=== PATIENT | male | born 1990 | race Caucasian/White ===

== ENCOUNTER 2016-09-21 15:47 | Emergency (ER) | payer OTHER ==
[2016-09-21 15:54] VITALS: TEMP 98.5; BMI 32.1
--- NOTE | 2016-09-21 18:01 | PDOC ---
History of Present Illness - History of Present Illness Initial Comments: 09/21/16 18:23 The patient is a 26 year old male with no past medical hx who presents to the ED complaining of a right sided headache for 4 days. The patient states the headache started 4 days ago behind his right eye when he woke up in the morning. He reports the night before he was in his normal state of health. He reports the headache has progressively gotten worse, but is still located on the right side. The headache is now a 10/10 and feels as if someone is punching his head. He reports he has never had a headache like this in the past , and his headaches are normally diffuse. He took Tylenol and Advil with no relief. 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 The patient denies a hx of migraines or recent head trauma. He reports vomiting, and intermittent right arm numbness. The patient denies any recent travel, fever, chills blurred vision, neck pain The patient denies any chest pain, SOB Allergies: NKDA Social: Former smoker (quit 3 months ago) Surgical:None PCP: N/A <Graciela iSnclair - Last Filed: 09/21/16 18:50> - General History Source: Patient Exam Limitations: No Limitations <Lisa Hand - Last Filed: 09/22/16 10:45> - General Chief Complaint: Migraine Headache Stated Complaint: HEADACHES, VOMITING BLOOD Time Seen by Provider: 09/21/16 17:34 Past History <Graciela Sinclair - Last Filed: 09/21/16 18:50> - Past Medical History Anemia: No Asthma: No Cancer: No Cardiac Disorders: No CVA: No COPD: No CHF: No Dementia: No Diabetes: No GI Disorders: No Disorders: No HTN: No Hypercholesterolemia: No Liver Disease: No Seizures: No Thyroid Disease: No Other medical history: denies - Surgical History Abdominal Surgery: No Appendectomy: No Cardiac Surgery: No Cholecystectomy: No Lung Surgery: No Neurologic Surgery: No Orthopedic Surgery: No - Psycho/Social/Smoking Cessation Hx Anxiety: No Suicidal Ideation: No Smoking Status: No Smoking History: Never smoked Have you smoked in the past 12 months: Yes Number of Cigarettes Smoked Daily: 0 If you are a former smoker, when did you quit?: 3 mo ago Information on smoking cessation initiated: No Hx Alcohol Use: Yes (occasional) Drug/Substance Use Hx: No Substance Use Type: None <YazanLisa - Last Filed: 09/22/16 10:45> - Past Medical History Allergies/Adverse Reactions: Allergies Allergy/AdvReac Type Severity Reaction Status Date / Time No Known Allergies Allergy Verified 09/21/16 15:52 Home Medications: Ambulatory Orders Cyclobenzaprine HCl [Flexeril -] 10 mg PO TID PRN #12 tablet 07/03/16 Ibuprofen [Motrin -] 600 mg PO QID PRN #30 tablet 07/03/16 Ibuprofen [Motrin -] 600 mg PO TID PRN #30 tablet 07/03/16 Amox-Tr/K Cl [Augmentin 875Mg Tablet] 1 tab PO BID #20 tablet 09/21/16 Ibuprofen 800 mg PO TID #30 tablet 09/21/16 Pseudoephedrine HCl [Sudafed] 30 mg PO Q6H #20 tablet 09/21/16 Review of Systems - Review of Systems Able to Perform ROS?: Yes Comments:: 09/21/16 18:50 GENERAL/CONSTITUTIONAL: No: fever, chills, weakness, loss of appetite. HEAD, EYES, EARS, NOSE AND THROAT: No: change in vision, ear pain, discharge, sore throat, throat swelling. CARDIOVASCULAR: No: chest pain, lightheadedness, palpitations, syncope RESPIRATORY: No: cough, shortness of breath, wheezing, hemoptysis, stridor. GASTROINTESTINAL: No: nausea, vomiting, abdominal cramping, diarrhea, rectal bleeding, constipation. GENITOURINARY: No: dysuria, hematuria, frequency, urgency, flank pain. MUSCULOSKELETAL: No: back pain, neck pain, joint pain, muscle swelling or pain SKIN: No: lesions, pallor, rash or easy bruising. NEUROLOGIC: +Headache, right arm numbness. No: vertigo, weakness ENDOCRINE: No: unexplained weight gain or loss HEMATOLOGIC/LYMPHATIC: No: anemia, easy bleeding, swelling nodes <Graciela Sinclair - Last Filed: 09/21/16 18:50> *Physical Exam - Vital Signs Last Vital Signs Temp Pulse Resp BP Pulse Ox 98.5 F 52 L 18 118/65 100 09/21/16 15:49 09/21/16 15:49 09/21/16 15:49 09/21/16 15:49 09/21/16 15:49 - Physical Exam Comments: 09/21/16 18:51 PE: GENERAL: +Appears uncomfortable. The patient is in no acute distress. HEAD: Normal with no signs of trauma. EYES: +Photophobia. PERRLA, EOMI, sclera anicteric, conjunctiva clear. ENT: Ears normal, nares patent, oropharynx clear without exudates. Moist mucous membranes. NECK: +No tenderness or rigidity. Normal range of motion, supple without lymphadenopathy, JVD, or masses. LUNGS: Breath sounds equal, clear to auscultation bilaterally. No wheezes, and no crackles. HEART:Regular rate and rhythm, normal S1 and S2 without murmur, rub or gallop. ABDOMEN: Soft, nontender, normoactive bowel sounds. No guarding, no rebound. EXTREMITIES: Normal range of motion, no edema. No clubbing or cyanosis. No erythema, or tenderness. NEUROLOGICAL: +Neurologically intact. Cranial nerves II through XII grossly intact. Normal speech. No focal neurological deficits. MUSCULOSKELETAL: Back nontender to palpation, no CVA tenderness SKIN: Warm, Dry, normal turgor, no rashes or lesions noted. <Graciela Sinclair - Last Filed: 09/21/16 18:50> - Vital Signs Last Vital Signs Temp Pulse Resp BP Pulse Ox 98.5 F 52 L 18 118/65 100 09/21/16 15:49 09/21/16 15:49 09/21/16 15:49 09/21/16 15:49 09/21/16 15:49 <Lisa Hand - Last Filed: 09/22/16 10:45> ED Treatment Course - LABORATORY CBC & Chemistry Diagram: 09/21/16 18:24 09/21/16 18:24 <Lisa Hand - Last Filed: 09/22/16 10:45> Medical Decision Making - Medical Decision Making 09/21/16 18:01 A portion of this note was documented by scribe services under my direction. I have reviewed the details of the note, within reason, and agree with the documentation with the following case summary and management plan written by me. Nursing documentation reviewed and incorporated into medical decision making 09/22/16 09:56 This is a 26-year-old male with no significant past medical history who presents emergency department with a complaint of right-sided headache. Patient states he has a history of chronic headaches but typically it is diffusely located throughout his head. Patient states this current headache began 4 days ago. He awoke from sleep with right-sided head pain. He states the headache is located behind his right eye. Initially pain was 4/10 and worsened to 7/10. The following day, his headache went from 5/10 and worsened to an 8/10 Today headache has been consistently 10/10 No focal weakness No slurred speech (+) photophobia No nuchal rigidity Pain increases with reading on his phone 09/22/16 10:15 On examination No pain on palpation of the islam Pupils round and reactive (+) photophobia NEURO: Mental status: The patient is oriented x3. Cranial nerves: Cranial nerves II through XII are intact Motor: The upper extremities are 5 over 5 in all muscle groups. The lower extremities are 5 over 5 in all muscle groups. Sensation: Sensation is intact to light touch throughout. Cerebellar: Sxfhef-[id number]-tcpb is normal in both upper extremities. Heel-knee- thorne is normal in both lower extremities. Reflexes: 2+ and symmetric in the upper and lower extremities. Gait: Normal. Heel and toe walking are normal. Tandem gait is normal. DD includes: Intracranial mass, sinusitis, Migraine, Tension headache Will do labs Will do CT Will give Tylenol IV (not toradol until CT) Will give Reglan IV Will re assess Pt signed out to Dr Calle <Lisa Hand - Last Filed: 09/22/16 10:45> *DC/Admit/Observation/Transfer - Attestations Scribe Attestion: 09/21/16 18:24 Documentation prepared by Graciela Sinclair, acting as medical lab assistant for Lisa Hand MD/. <Graciela Sinclair - Last Filed: 09/21/16 18:50> <Lisa Hand - Last Filed: 09/22/16 10:45> Diagnosis at time of Disposition: Sinusitis Qualifiers: Sinusitis location: sphenoidal Chronicity: acute Recurrence: non-recurrent Qualified Code(s): J01.30 - Acute sphenoidal sinusitis, unspecified - Discharge Dispostion Disposition: HOME Condition at time of disposition: Good - Prescriptions Prescriptions: Amox-Tr/K Cl [Augmentin 875Mg Tablet] 1 tab PO BID #20 tablet Ibuprofen 800 mg PO TID #30 tablet Pseudoephedrine HCl [Sudafed] 30 mg PO Q6H #20 tablet - Referrals Referrals: Blas Melissa MD [Staff Physician] - - Patient Instructions Printed Discharge Instructions: DI for Sinusitis
[2016-09-21] MEDS ORDERED: SODIUM CHLORIDE 1,000 ML IV STA (18:02)
[2016-09-21] MEDS ORDERED: METOCLOPRAMIDE HCL INJECTION 10 MG/2 ML VIAL IVPB ONE (18:03)
[2016-09-21] MEDS ORDERED: ACETAMINOPHEN 1000 MG/100 ML VIAL (NON FORMULARY) IVPB ONE (18:03)
[2016-09-21] MEDS ORDERED: MAGNESIUM SULF 50% (8.12 MEQ/2 ML-1 GM VIAL) IVPB ONE (18:03)
[2016-09-21] MEDS ORDERED: MAGNESIUM SULF 50% (8.12 MEQ/2 ML-1 GM VIAL) ONE (18:29)
[2016-09-21] MEDS ORDERED: METOCLOPRAMIDE HCL INJECTION 10 MG/2 ML VIAL ONE (18:29)
[2016-09-21] MEDS ORDERED: ACETAMINOPHEN INJECTION 100 ML IVPB ONE (18:30)
[2016-09-21 19:09] LABS: BASOPHIL 0.8 % (0-2.0); MCH 28.3 pg (25.7-33.7); MCHC 31.8 g/dl (32.0-35.9); MEAN PLT VOLUME 9.6 fl (7.5-11.1); NEUTROPHILS 58.6 % (42.8-82.8); PLATELET COUNT 179 K/MM3 (134-434); RDW 13.1 % (11.9-15.9)
[2016-09-21 19:31] LABS: ALBUMIN 4.2 g/dl (3.4-5.0); ALK PHOS 77 U/L (45-117); ANION GAP 6 (8-16); BILIRUBIN,TOTAL 0.3 mg/dL (0.2-1.0); CALCIUM 9.2 mg/dL (8.5-10.1); CO2 28 mmol/L (21-32); CREATININE 0.8 mg/dL (0.7-1.3); GLUCOSE,RANDOM 83 mg/dL (74-106); SGOT/AST 15 U/L (15-37); SGPT/ALT 23 U/L (12-78); TOT PROT 7.5 g/dl (6.4-8.2)
[2016-09-21] MEDS ORDERED: KETOROLAC TROMETHAMINE 30 MG/1 ML VIAL IVPUSH ONE (20:56)
[2016-09-21] MEDS ORDERED: AMPICILLIN NA/SULBACTAM NA 3 GM in SODIUM CHLORIDE 100 ML IVPB ONE (20:56)
[2016-09-21] MEDS ORDERED: KETOROLAC TROMETHAMINE 30 MG/1 ML VIAL ONE (21:30)
--- NOTE | 2016-09-21 22:33 | PDOC ---
*Physical Exam - Vital Signs Last Vital Signs Temp Pulse Resp BP Pulse Ox 98.5 F 52 L 18 118/65 100 09/21/16 15:49 09/21/16 15:49 09/21/16 15:49 09/21/16 15:49 09/21/16 15:49 ED Treatment Course - LABORATORY CBC & Chemistry Diagram: 09/21/16 18:24 09/21/16 18:24 - ADDITIONAL ORDERS Additional order review: Laboratory Results 09/21/16 18:24 Sodium 141 Potassium 4.1 Chloride 107 Carbon Dioxide 28 Anion Gap 6 L BUN 15 D Creatinine 0.8 Creat Clearance w eGFR > 60 Random Glucose 83 D Calcium 9.2 Total Bilirubin 0.3 D AST 15 ALT 23 Alkaline Phosphatase 77 Total Protein 7.5 Albumin 4.2 09/21/16 18:24 RBC 5.23 MCV 89.0 MCHC 31.8 L RDW 13.1 MPV 9.6 Neutrophils % 58.6 Lymphocytes % 28.6 Monocytes % 9.0 Eosinophils % 3.0 D Basophils % 0.8 - Medications Given in the ED: ED Medications Discontinued Medications Generic Name Dose Route Start Last Admin Trade Name Mishaq PRN Reason Stop Dose Admin Acetaminophen 1,000 mg 09/21/16 18:03 09/21/16 18:35 Ofirmev Injection - IVPB 09/21/16 18:04 1,000 mg ONCE ONE Administration Ampicillin Sodium/Sulbactam 100 mls @ 200 mls/hr 09/21/16 20:56 09/21/16 21:31 Sodium 3 gm/ Sodium Chloride IVPB 09/21/16 21:25 200 mls/hr ONCE ONE Administration Ketorolac Tromethamine 30 mg 09/21/16 20:56 09/21/16 21:31 Toradol Injection - IVPUSH 09/21/16 20:57 30 mg ONCE ONE Administration Magnesium Sulfate 2 gm 09/21/16 18:03 09/21/16 18:35 Magnesium Sulfate IVPB 09/21/16 18:04 2 gm ONCE ONE Administration Metoclopramide HCl 10 mg 09/21/16 18:03 09/21/16 18:35 Reglan Injection - IVPB 09/21/16 18:04 10 mg ONCE ONE Administration *DC/Admit/Observation/Transfer Diagnosis at time of Disposition: Sinusitis Qualifiers: Sinusitis location: sphenoidal Chronicity: acute Recurrence: non-recurrent Qualified Code(s): J01.30 - Acute sphenoidal sinusitis, unspecified - Discharge Dispostion Disposition: HOME Condition at time of disposition: Stable Admit: No - Referrals Referrals: Blas Melissa MD [Staff Physician] - - Patient Instructions Printed Discharge Instructions: DI for Sinusitis
[2016-09-21 23:22] VITALS: BP 116/66; PULSE 61
== END 2016-09-21 23:20 | disposition home or self-care (01) ==
LOC: JER 15:47
PROC: 3E0337Z Introduction of Electrolytic and Water Balance Substance into Peripheral Vein, Percutaneous Approach (ICD-10-PCS; principal; 2016-09-21)
PROC: 3E03329 Introduction of Other Anti-infective into Peripheral Vein, Percutaneous Approach (ICD-10-PCS; 2016-09-21)
PROC: 3E033GC Introduction of Other Therapeutic Substance into Peripheral Vein, Percutaneous Approach (ICD-10-PCS; 2016-09-21)
PROC: 3E033NZ Introduction of Analgesics, Hypnotics, Sedatives into Peripheral Vein, Percutaneous Approach (ICD-10-PCS; 2016-09-21)
PROC: 3E0333Z Introduction of Anti-inflammatory into Peripheral Vein, Percutaneous Approach (ICD-10-PCS; 2016-09-21)
DX: J01.30 Acute sphenoidal sinusitis, unspecified (principal)
CPT/HCPCS: 36415; 70450-TC; 80053; 85025; 99283-25

== ENCOUNTER 2022-11-14 12:59 | Inpatient (IN) | payer OTHER ==
[2022-11-14] MEDS ORDERED: SODIUM CHLORIDE 1,000 ML IV STA (14:38)
[2022-11-14] MEDS ORDERED: CLINDAMYCIN 600MG PREMIX IVPB 600 MG/50 ML BAG IVPB ONE ×2 (14:38→15:09)
[2022-11-14 15:34] LABS: BASO % 0.7 % (0-2.0); HEMATOCRIT 43.9 % (35.4-49); HEMOGLOBIN 14.6 GM/dL (11.7-16.9); LYMPH % 18.1 % (8-40); MCH 29.4 pg (25.7-33.7); MCHC 33.1 g/dl (32.0-35.9); MEAN CELL VOLUME 88.6 fl (80-96); MEAN PLT VOLUME 9.4 fl (7.5-11.1); MONO % 12.2 % (3.8-10.2); PLATELET COUNT 202 10^3/uL (134-434); RBC 4.96 M/mm3 (4.00-5.60); RDW 13.3 % (11.9-15.9); WHITE BLOOD COUNT 12.1 K/mm3 (4.0-10.0)
[2022-11-14 15:41] LABS: INR 1.06 (0.83-1.09); PROTHROMBIN TIME (PATIENT) 12.3 SEC (9.7-13.0)
[2022-11-14 15:44] LABS: ACTIVATED PTT 32.1 SECONDS (25.2-36.5)
[2022-11-14 15:56] LABS: CALCIUM 9.3 mg/dL (8.5-10.1)
[2022-11-14 15:57] LABS: BLOOD UREA NITROGEN 8.3 mg/dL (7-18)
[2022-11-14 16:00] LABS: CREATININE 0.8 mg/dL (0.55-1.3)
[2022-11-14 16:01] LABS: BILIRUBIN,TOTAL 0.4 mg/dL (0.2-1); TOT PROT 7.6 g/dl (6.4-8.2)
[2022-11-14] MEDS ORDERED: ACETAMINOPHEN 1000 MG/100 ML BAG IVPB ONE (16:17)
[2022-11-14] MEDS ORDERED: ACETAMINOPHEN INJECTION 100 ML IVPB ONE (17:02)
[2022-11-14 18:38] VITALS: BMI 34.8
[2022-11-14] MEDS: AMPICILLIN NA/SULBACTAM NA 3 GM in SODIUM CHLORIDE 100 ML IVPB SCH (19:02)
[2022-11-14] MEDS: DOXYCYCLINE INJECTION 100 MG in DEXTROSE 5%-WATER 100 ML IVPB SCH (21:34)
[2022-11-14] MEDS ORDERED: CIPROFLOXACIN 400 MG/D5W 400 MG/200 ML IVPB IVPB SCH (22:00)
[2022-11-14] MEDS: IBUPROFEN 400 MG TABLET (FP) PO PRN (23:02)
[2022-11-14] MEDS ORDERED: ACETAMINOPHEN 1000 MG/100 ML BAG IVPB PRN (23:15)
[2022-11-15] MEDS: AMPICILLIN NA/SULBACTAM NA 3 GM in SODIUM CHLORIDE 100 ML IVPB SCH ×3 (01:54→19:06)
[2022-11-15 10:07] LABS: BASO % 0.4 % (0-2.0); EOS % 1.8 % (0-4.5); HEMATOCRIT 44.4 % (35.4-49); HEMOGLOBIN 14.6 GM/dL (11.7-16.9); LYMPH % 17.7 % (8-40); MCH 29.4 pg (25.7-33.7); MCHC 32.8 g/dl (32.0-35.9); MEAN CELL VOLUME 89.5 fl (80-96); MEAN PLT VOLUME 9.8 fl (7.5-11.1); MONO % 11.5 % (3.8-10.2); NEUT % 68.6 % (42.8-82.8); PLATELET COUNT 191 10^3/uL (134-434); RBC 4.96 M/mm3 (4.00-5.60); RDW 13.4 % (11.9-15.9); WHITE BLOOD COUNT 13.3 K/mm3 (4.0-10.0)
[2022-11-15] MEDS: ENOXAPARIN NA (PORCINE) 40 MG/0.4 ML DISP.SYRIN SQ SCH (10:12)
[2022-11-15] MEDS: DOXYCYCLINE INJECTION 100 MG in DEXTROSE 5%-WATER 100 ML IVPB SCH (10:13)
[2022-11-15 10:40] LABS: ALBUMIN 3.5 g/dl (3.4-5.0); BLOOD UREA NITROGEN 9.1 mg/dL (7-18); CALCIUM 8.9 mg/dL (8.5-10.1)
[2022-11-15 10:43] LABS: CREATININE 0.8 mg/dL (0.55-1.3)
[2022-11-15 10:45] LABS: BILIRUBIN,TOTAL 0.8 mg/dL (0.2-1); TOT PROT 6.8 g/dl (6.4-8.2)
[2022-11-15] MEDS: IBUPROFEN 400 MG TABLET (FP) PO PRN (15:24)
[2022-11-16] MEDS: AMPICILLIN NA/SULBACTAM NA 3 GM in SODIUM CHLORIDE 100 ML IVPB SCH ×3 (02:30→18:39)
[2022-11-16] MEDS: IBUPROFEN 400 MG TABLET (FP) PO PRN ×3 (04:36→23:07)
[2022-11-16] MEDS ORDERED: VANCOMYCIN 2,000 MG in DEXTROSE 5%-WATER - 500 ML IVPB SCH (08:15)
[2022-11-16 08:45] LABS: HEMATOCRIT 42.4 % (35.4-49); HEMOGLOBIN 13.9 GM/dL (11.7-16.9); MCH 29.5 pg (25.7-33.7); MCHC 32.8 g/dl (32.0-35.9); MEAN PLT VOLUME 10.1 fl (7.5-11.1); PLATELET COUNT 173 10^3/uL (134-434); RBC 4.71 M/mm3 (4.00-5.60); RDW 13.1 % (11.9-15.9); WHITE BLOOD COUNT 10.9 K/mm3 (4.0-10.0)
[2022-11-16 09:02] LABS: ALBUMIN 3.2 g/dl (3.4-5.0); CALCIUM 8.9 mg/dL (8.5-10.1); MAGNESIUM 2.2 mg/dL (1.8-2.4)
[2022-11-16 09:03] LABS: BLOOD UREA NITROGEN 12.1 mg/dL (7-18)
[2022-11-16 09:05] LABS: CREATININE 0.7 mg/dL (0.55-1.3); PHOSPHOROUS 3.6 mg/dL (2.5-4.9)
[2022-11-16 09:07] LABS: BILIRUBIN,TOTAL 0.4 mg/dL (0.2-1); TOT PROT 6.4 g/dl (6.4-8.2)
[2022-11-16] MEDS ORDERED: VANCOMYCIN/WATER 2 GRAMS 2,000 MG/400 ML PIGGYBACK IVPB SCH (10:00)
[2022-11-16] MEDS ORDERED: DOXYCYCLINE INJECTION 100 MG in DEXTROSE 5%-WATER 100 ML IVPB SCH (10:00)
[2022-11-16] MEDS: ENOXAPARIN NA (PORCINE) 40 MG/0.4 ML DISP.SYRIN SQ SCH (10:05)
[2022-11-17] MEDS: AMPICILLIN NA/SULBACTAM NA 3 GM in SODIUM CHLORIDE 100 ML IVPB SCH ×3 (02:44→17:53)
[2022-11-17 08:13] LABS: BASO % 0.8 % (0-2.0); EOS % 3.7 % (0-4.5); HEMATOCRIT 43.2 % (35.4-49); HEMOGLOBIN 14.2 GM/dL (11.7-16.9); LYMPH % 30.7 % (8-40); MCH 29.3 pg (25.7-33.7); MCHC 32.8 g/dl (32.0-35.9); MEAN CELL VOLUME 89.4 fl (80-96); MEAN PLT VOLUME 9.7 fl (7.5-11.1); MONO % 10.4 % (3.8-10.2); NEUT % 54.4 % (42.8-82.8); PLATELET COUNT 170 10^3/uL (134-434); RBC 4.83 M/mm3 (4.00-5.60); RDW 13.1 % (11.9-15.9); WHITE BLOOD COUNT 7.6 K/mm3 (4.0-10.0)
[2022-11-17 08:40] LABS: BLOOD UREA NITROGEN 12.9 mg/dL (7-18); CALCIUM 8.8 mg/dL (8.5-10.1); MAGNESIUM 2.2 mg/dL (1.8-2.4)
[2022-11-17 08:43] LABS: CREATININE 0.7 mg/dL (0.55-1.3); PHOSPHOROUS 3.1 mg/dL (2.5-4.9)
[2022-11-17 08:44] LABS: BILIRUBIN,TOTAL 0.4 mg/dL (0.2-1)
[2022-11-17] MEDS: ENOXAPARIN NA (PORCINE) 40 MG/0.4 ML DISP.SYRIN SQ SCH (10:48)
[2022-11-17] MEDS: IBUPROFEN 400 MG TABLET (FP) PO PRN ×2 (15:29→22:25)
[2022-11-18] MEDS: AMPICILLIN NA/SULBACTAM NA 3 GM in SODIUM CHLORIDE 100 ML IVPB SCH ×3 (02:42→17:33)
[2022-11-18] MEDS: ENOXAPARIN NA (PORCINE) 40 MG/0.4 ML DISP.SYRIN SQ SCH (09:05)
[2022-11-18 10:13] LABS: HEMOGLOBIN 14.5 GM/dL (11.7-16.9); MCH 28.5 pg (25.7-33.7); MCHC 32.2 g/dl (32.0-35.9); MEAN CELL VOLUME 88.7 fl (80-96); MEAN PLT VOLUME 9.7 fl (7.5-11.1); PLATELET COUNT 180 10^3/uL (134-434); RBC 5.08 M/mm3 (4.00-5.60); RDW 13.4 % (11.9-15.9); WHITE BLOOD COUNT 5.4 K/mm3 (4.0-10.0)
[2022-11-18 10:52] LABS: CALCIUM 8.9 mg/dL (8.5-10.1)
[2022-11-18 10:53] LABS: ALBUMIN 3.3 g/dl (3.4-5.0); BLOOD UREA NITROGEN 15.2 mg/dL (7-18)
[2022-11-18 10:56] LABS: CREATININE 0.9 mg/dL (0.55-1.3)
[2022-11-18 10:58] LABS: BILIRUBIN,TOTAL 0.4 mg/dL (0.2-1); TOT PROT 6.7 g/dl (6.4-8.2)
[2022-11-19] MEDS: AMPICILLIN NA/SULBACTAM NA 3 GM in SODIUM CHLORIDE 100 ML IVPB SCH ×3 (01:44→17:01)
[2022-11-19] MEDS: IBUPROFEN 400 MG TABLET (FP) PO PRN (05:50)
[2022-11-19] MEDS: ENOXAPARIN NA (PORCINE) 40 MG/0.4 ML DISP.SYRIN SQ SCH (09:23)
[2022-11-19 10:22] LABS: BASO % 0.7 % (0-2.0); EOS % 2.9 % (0-4.5); HEMATOCRIT 46.4 % (35.4-49); HEMOGLOBIN 15.2 GM/dL (11.7-16.9); LYMPH % 32.4 % (8-40); MCH 29.6 pg (25.7-33.7); MCHC 32.8 g/dl (32.0-35.9); MEAN CELL VOLUME 90.3 fl (80-96); MEAN PLT VOLUME 9.8 fl (7.5-11.1); MONO % 7.4 % (3.8-10.2); NEUT % 56.6 % (42.8-82.8); PLATELET COUNT 213 10^3/uL (134-434); RBC 5.13 M/mm3 (4.00-5.60); RDW 12.9 % (11.9-15.9); WHITE BLOOD COUNT 7.2 K/mm3 (4.0-10.0)
[2022-11-19 10:41] LABS: CALCIUM 9.3 mg/dL (8.5-10.1)
[2022-11-19 10:42] LABS: BLOOD UREA NITROGEN 9.7 mg/dL (7-18)
[2022-11-19 10:45] LABS: CREATININE 0.9 mg/dL (0.55-1.3)
[2022-11-20] MEDS: AMPICILLIN NA/SULBACTAM NA 3 GM in SODIUM CHLORIDE 100 ML IVPB SCH ×2 (01:06→09:18)
[2022-11-20] MEDS: IBUPROFEN 400 MG TABLET (FP) PO PRN (09:18)
[2022-11-20] MEDS: ENOXAPARIN NA (PORCINE) 40 MG/0.4 ML DISP.SYRIN SQ SCH (09:18)
[2022-11-20 09:55] LABS: HEMATOCRIT 47.2 % (35.4-49); HEMOGLOBIN 15.4 GM/dL (11.7-16.9); MCH 28.6 pg (25.7-33.7); MCHC 32.6 g/dl (32.0-35.9); MEAN CELL VOLUME 87.8 fl (80-96); MEAN PLT VOLUME 9.2 fl (7.5-11.1); PLATELET COUNT 224 10^3/uL (134-434); RBC 5.38 M/mm3 (4.00-5.60); RDW 13.3 % (11.9-15.9); WHITE BLOOD COUNT 6.8 K/mm3 (4.0-10.0)
[2022-11-20 10:45] LABS: BLOOD UREA NITROGEN 11.8 mg/dL (7-18); CALCIUM 9.3 mg/dL (8.5-10.1)
[2022-11-20 10:48] LABS: CREATININE 0.9 mg/dL (0.55-1.3)
[2022-11-20 14:45] VITALS: BP 120/68; PULSE 55; RESP 18; TEMP 98
== END 2022-11-20 15:53 | disposition home or self-care (01) | DRG 951 ==
LOC: JER 12:59 → JERFT 12:59 → JERBED 14:48 → J6S 18:07 → OBSVTOIN 11-16 09:56
PROVIDERS: ADMIT Internal Medicine; ATTEND Internal Medicine
PROC: 0XJ Anatomical Regions, Upper Extremities, Inspection (ICD-10-PCS; principal; 2022-11-16)
DX: L03.114 Cellulitis of left upper limb (principal); L02.512 Cutaneous abscess of left hand
CPT/HCPCS: 36415; 71046-TC-FY; 73130-TC-LT-FY; 73201-TC-RT; 73218-TC-LT; 80048; 80053; 83735; 84100; 85025; 85027; 85610; 85730; 87040; 87081; 93971; 99285-25; C9803-CS; G0378; G0480; Q9967; U0003; U0005